=== PATIENT | male | born 1980 | race Hispanic/Latino ===

== ENCOUNTER 2017-08-19 10:09 | Emergency (ER) | payer BC | END 2017-08-19 10:57 | disposition home or self-care (01) | LOC: ERS 10:09 | DX: J45.901 Unspecified asthma with (acute) exacerbation (principal) | CPT/HCPCS: 94640; J7620 ==

== ENCOUNTER 2017-08-26 16:03 | Emergency (ER) | payer BC ==
[~2017-08-26 16:03] MED LIST: ISOVUE-370 76%-LOCM 1 ML ONE
[2017-08-26 16:42] LABS: #Eosinphils 0.1 thou/uL (0.0-0.7); #Lymphocytes 0.6 thou/uL (1.20-3.40); #Monocytes 0.3 thou/uL (0.11-0.59); #Neutrophils 5.4 thou/uL (1.40-6.50); %Basophils 0.6 % (0.0-1.0); %Eosinophils 2.1 % (0.0-10.0); %Lymphocytes 8.7 % (21.0-51.0); %Monocytes 4.9 % (0.0-10.0); %Neutrophils 83.7 % (42.0-75.0); Hemoglobin 17.1 g/dL (14.0-18.0); Mean Corpuscular HGB CONC 37.3 g/dL (32.0-36.0); Mean Platelet Volume 9.1 fL (7.4-10.4); Platelet Count 147 thou/uL (130-400); RBC Distribution Width 11.5 % (11.5-14.5); Red Blood Cell (RBC) Count 5.03 mill/uL (4.70-6.10); White Blood Cell (WBC) Count 6.5 thou/uL (4.8-10.8)
--- NOTE | 2017-08-26 16:43 | RAD ---
CHEST ONE VIEW 08/26/17 HISTORY: Dyspnea. Chest pain. FINDINGS: No comparison. Cardiac silhouette is magnified by projection. Pulmonary vasculature is unremarkable. Mediastinum is midline. There is no lobar consolidation or evidence of pneumothorax. child monitor leads overlie t he chest. IMPRESSION: No active cardiopulmonary abnormalities are demonstrated. POS: [facility]
[2017-08-26 17:00] LABS: CKMB 0.8 ng/mL (0-6.6); Troponin I Less than 0.010 ng/mL (< 0.028)
[2017-08-26 17:21] LABS: ALT (SGPT) 54 U/L (8-55)
[2017-08-26 17:46] LABS: Chloride 107 mmol/L (98-107); Potassium 4.6 mmol/L (3.5-5.1); Sodium 140 mmol/L (136-145)
[2017-08-26 17:47] LABS: Anion Gap 16 mmol/L (10-20); BUN (Urea Nitrogen) 13 mg/dL (8.9-20.6); Calc. Creatinine Clearance 0 mL/min (70-130); Carbon Dioxide 22 mmol/L (22-29); Estimated GFR-MDRD 88
[2017-08-26 17:48] LABS: Albumin 4.7 g/dL (3.5-5.0); Bilirubin, Total 0.7 mg/dL (0.2-1.2); Calcium 9.6 mg/dL (7.8-10.44); Globulin 2.5 g/dL (2.4-3.5); Glucose 352 mg/dL (70-105); Protein, Total 7.2 g/dL (6.0-8.3)
[2017-08-26 17:49] LABS: AST (SGOT) 58 U/L (5-34); Alkaline Phosphatase 90 U/L (40-150); CK (CPK) 74 U/L (30-200)
[2017-08-26] MEDS ORDERED: predniSONE 20 MG TAB ONE (18:34)
--- NOTE | 2017-08-26 18:35 | CT ---
CT ANGIO OF CHEST PERFORMED WITH INTRAVENOUS CONTRAST ENHANCEMENT WITH 3D RECONSTRUCTIONS: 08/26/17 HISTORY: Elevated D-dimer. Cough. The lungs are clear of any infiltrative process. No pulmonary nodules or pleural effusions. This examination had to be repeated due to poor timing of the bolus on the initial study. Unfortunate ly on the second study, the exam was also late as the contrast is entirely in the arterial system. T his is nondiagnostic for pulmonary embolus. The thoracic aorta is normal in caliber. There are marked fatty changes of the liver. Right and left adrenal glands are normal. The spleen is slightly enlarged measuring approximately 15 cm in length. It is not entirely visualized on this exam ination. The liver is also not entirely visualized but may be slightly enlarged. IMPRESSION: 1. No evidence of any infiltrative process. 2. Nondiagnostic study for pulmonary embolus. 3. Diffuse fatty change of the liver with borderline liver and spleen size. POS: [facility]
--- NOTE | 2017-08-29 16:45 | EKG ---
Test Reason : ALBEUTEROL Blood Pressure : / mmHG Vent. Rate : 117 BPM Atrial Rate : 117 BPM P-R Int : 158 ms QRS Dur : 106 ms QT Int : 334 ms P-R-T Axes : 041 257 029 degrees QTc Int : 465 ms Sinus tachycardia Right superior axis deviation Incomplete right bundle branch block Right ventricular hypertrophy Abnormal ECG Confirmed by CHEMO LOEW ([id number]), web editor JESSICA CORDOBA ([id number]) on 08/29/2017 4:45:43 PM Referred By: MEGHAN Confirmed By:CHEMO LOWE
== END 2017-08-26 19:00 | disposition home or self-care (01) ==
LOC: ERS 16:03
DX: J45.901 Unspecified asthma with (acute) exacerbation (principal); Z79.899 Other long term (current) drug therapy
CPT/HCPCS: 36415; 71045; 71275; 80053; 82553; 83880; 84484; 85025; 85379; 93005; J7506; J7620

== ENCOUNTER 2018-11-25 12:06 | Emergency (ER) | payer BC ==
[2018-11-25 13:40] LABS: Bilirubin Negative (Negative); Blood, Urine Negative (Negative); Clarity CLEAR (Clear); Glucose, Urine (Dipstick) >=1000 mg/dL (Negative); Leukocyte Negative (Negative); Nitrite Negative (Negative); Protein, Urine (Dipstick) Negative (Neg-Trace); Urobilinogen 0.2 mg/dL (0.2-1.0)
[2018-11-25 15:23] LABS: #Eosinphils 0.1 thou/uL (0.0-0.7); #Lymphocytes 1.9 thou/uL (1.20-3.40); #Monocytes 0.6 thou/uL (0.11-0.59); #Neutrophils 5.7 thou/uL (1.40-6.50); %Basophils 0.3 % (0.0-1.0); %Eosinophils 0.7 % (0.0-10.0); %Lymphocytes 22.6 % (21.0-51.0); %Monocytes 7.4 % (0.0-10.0); Hemoglobin 15.5 g/dL (14.0-18.0); Mean Corpuscular HGB CONC 34.4 g/dL (32.0-36.0); Mean Corpuscular Hemoglobin 31.3 pg (27.0-31.0); Mean Platelet Volume 8.5 fL (7.4-10.4); Platelet Count 131 thou/uL (130-400); RBC Distribution Width 11.6 % (11.5-14.5); Red Blood Cell (RBC) Count 4.96 mill/uL (4.70-6.10); White Blood Cell (WBC) Count 8.2 thou/uL (4.8-10.8)
[2018-11-25 15:41] LABS: ALT (SGPT) 49 U/L (8-55); AST (SGOT) 23 U/L (5-34); Albumin 4.5 g/dL (3.5-5.0); Alkaline Phosphatase 82 U/L (40-150); Anion Gap 11 mmol/L (10-20); BUN (Urea Nitrogen) 8 mg/dL (8.9-20.6); Bilirubin, Total 1.3 mg/dL (0.2-1.2); Calc. Creatinine Clearance 0 mL/min (70-130); Calcium 9.4 mg/dL (7.8-10.44); Carbon Dioxide 30 mmol/L (22-29); Chloride 99 mmol/L (98-107); Estimated GFR-MDRD Greater than 90; Globulin 2.8 g/dL (2.4-3.5); Glucose 255 mg/dL (70-105); Lipase 30 U/L (8-78); Potassium 3.9 mmol/L (3.5-5.1); Protein, Total 7.3 g/dL (6.0-8.3); Sodium 136 mmol/L (136-145)
--- NOTE | 2018-11-25 16:49 | CT ---
CT ABDOMEN AND PELVIS WITH IV CONTRAST 11/25/18 HISTORY: Left sided back and flank pain. FINDINGS: The lung bases are clear. The liver demonstrates diffusely decreased attenuation compared to the sple en consistent with fatty infiltration. No liver mass or abnormal biliary ductal dilatation is seen. No calcified gallstones are noted. The gallbladder is contracted. The spleen is enlarged measuring 16 cm in length. The pancreas, adrenal glands and kidneys are normal. There is colonic diverticulosis with thickening of the descending colon with adjacent inflammatory ch anges and small tiny amount of fluid in the left pericolic gutter. There is a fat containing umbilical hernia. The small bowel loops are not abnormally dilated. A norm al appearing appendix is seen. No acute osseous abnormalities are identified. IMPRESSION: 1. Left descending colitis/diverticulitis. A colonoscopy should be performed after treatment. 2. Fatty liver. 3. Fat containing umbilical hernia. 4. Splenomegaly. POS: [facility]
[2018-11-25] MEDS ORDERED: Morphine 4 MG/ML VIAL ONE (17:15)
[2018-11-25] MEDS ORDERED: Ondansetron PF 4 MG/2 ML Vial ONE (17:16)
[2018-11-25] MEDS ORDERED: Ketorolac Tromethamine 30 MG/ML VIAL ONE (17:16)
== END 2018-11-25 17:24 | disposition home or self-care (01) ==
LOC: ERS 12:06
DX: K57.32 Diverticulitis of large intestine without perforation or abscess without bleeding (principal); K76.0 Fatty (change of) liver, not elsewhere classified; K46.9 Unspecified abdominal hernia without obstruction or gangrene; R16.1 Splenomegaly, not elsewhere classified; J45.909 Unspecified asthma, uncomplicated
CPT/HCPCS: 36415; 74177; 80053; 81003; 83690; 85025; 96374; 96375; J1885; J2270; J2405; Q9966

== ENCOUNTER 2018-12-01 18:24 | Emergency (ER) | payer BC ==
[2018-12-01 18:54] LABS: #Basophils 0.1 thou/uL (0.0-0.2); #Eosinphils 0.1 thou/uL (0.0-0.7); #Lymphocytes 2.2 thou/uL (1.20-3.40); #Monocytes 0.4 thou/uL (0.11-0.59); #Neutrophils 3.6 thou/uL (1.40-6.50); %Eosinophils 1.1 % (0.0-10.0); %Lymphocytes 35.2 % (21.0-51.0); %Monocytes 5.6 % (0.0-10.0); %Neutrophils 57.2 % (42.0-75.0); Hemoglobin 16.1 g/dL (14.0-18.0); Mean Corpuscular HGB CONC 35.1 g/dL (32.0-36.0); Mean Corpuscular Hemoglobin 32.5 pg (27.0-31.0); Mean Corpuscular Volume 92.6 fL (78.0-98.0); Mean Platelet Volume 8.2 fL (7.4-10.4); Platelet Count 142 thou/uL (130-400); RBC Distribution Width 11.6 % (11.5-14.5); Red Blood Cell (RBC) Count 4.97 mill/uL (4.70-6.10); White Blood Cell (WBC) Count 6.3 thou/uL (4.8-10.8)
[2018-12-01] MEDS ORDERED: metroNIDAZOLE 500 MG/100 ML BAG ONE (19:09)
[2018-12-01] MEDS ORDERED: Ondansetron PF 4 MG/2 ML Vial ONE (19:09)
[2018-12-01 19:12] LABS: ALT (SGPT) 92 U/L (8-55); AST (SGOT) 44 U/L (5-34); Albumin 4.5 g/dL (3.5-5.0); Alkaline Phosphatase 82 U/L (40-150); Anion Gap 14 mmol/L (10-20); BUN (Urea Nitrogen) 11 mg/dL (8.9-20.6); Bilirubin, Total 0.6 mg/dL (0.2-1.2); Calc. Creatinine Clearance 0 mL/min (70-130); Calcium 9.3 mg/dL (7.8-10.44); Carbon Dioxide 26 mmol/L (22-29); Chloride 100 mmol/L (98-107); Estimated GFR-MDRD 80; Globulin 2.6 g/dL (2.4-3.5); Glucose 479 mg/dL (70-105); Potassium 4.1 mmol/L (3.5-5.1); Protein, Total 7.1 g/dL (6.0-8.3); Sodium 136 mmol/L (136-145)
[2018-12-01 21:56] LABS: Lactic Acid 1.2 mmol/L (0.5-2.2)
--- NOTE | 2018-12-04 18:45 | EKG ---
Test Reason : Blood Pressure : / mmHG Vent. Rate : 096 BPM Atrial Rate : 096 BPM P-R Int : 132 ms QRS Dur : 114 ms QT Int : 372 ms P-R-T Axes : 023 -54 041 degrees QTc Int : 469 ms Normal sinus rhythm Left axis deviation Incomplete right bundle branch block Abnormal ECG No changes from 26-AUG-2017 Confirmed by YORDAN AMIN DO ([id number]), newspaper editor managing TREVOR JOLLEY ([id number]) on 12/04/2018 6:45:25 PM Referred By: Confirmed By:YORDAN AMIN DO
== END 2018-12-01 22:36 | disposition home or self-care (01) ==
LOC: ERS 18:24
DX: E86.0 Dehydration (principal); R73.9 Hyperglycemia, unspecified; J45.909 Unspecified asthma, uncomplicated; Z79.891 Long term (current) use of opiate analgesic; Z79.899 Other long term (current) drug therapy
CPT/HCPCS: 36415; 36416; 80053; 83605; 84484; 85025; 93005; 96361; 96365; 96367; 96375; J0744; J2405

== ENCOUNTER 2019-05-08 12:10 | Emergency (ER) | payer BC ==
[2019-05-08 13:01] LABS: #Eosinphils 0.1 thou/uL (0.0-0.7); #Lymphocytes 2.1 thou/uL (1.20-3.40); #Monocytes 0.3 thou/uL (0.11-0.59); #Neutrophils 2.9 thou/uL (1.40-6.50); %Basophils 0.2 % (0.0-1.0); %Eosinophils 1.1 % (0.0-10.0); %Lymphocytes 38.5 % (21.0-51.0); %Monocytes 5.3 % (0.0-10.0); %Neutrophils 54.8 % (42.0-75.0); INR-International Normal Ratio 1.1; Mean Corpuscular HGB CONC 37.1 g/dL (32.0-36.0); Mean Corpuscular Hemoglobin 34.1 pg (27.0-31.0); Mean Corpuscular Volume 91.9 fL (78.0-98.0); Platelet Count 129 thou/uL (130-400); Prothrombin Time 13.8 SEC (12.0-14.7); RBC Distribution Width 11.3 % (11.5-14.5); Red Blood Cell (RBC) Count 4.68 mill/uL (4.70-6.10); White Blood Cell (WBC) Count 5.3 thou/uL (4.8-10.8)
[2019-05-08 13:11] LABS: ALT (SGPT) 120 U/L (8-55); AST (SGOT) 53 U/L (5-34); Albumin 4.2 g/dL (3.5-5.0); Alkaline Phosphatase 64 U/L (40-110); Anion Gap 13 mmol/L (10-20); BUN (Urea Nitrogen) 8 mg/dL (8.9-20.6); Bilirubin, Total 0.5 mg/dL (0.2-1.2); Calc. Creatinine Clearance 0 mL/min (70-130); Calcium 8.3 mg/dL (7.8-10.44); Carbon Dioxide 23 mmol/L (22-29); Chloride 102 mmol/L (98-107); Estimated GFR-MDRD Greater than 90; Globulin 2.6 g/dL (2.4-3.5); Glucose 294 mg/dL (70-105); Potassium 3.8 mmol/L (3.5-5.1); Protein, Total 6.8 g/dL (6.0-8.3); Sodium 134 mmol/L (136-145)
== END 2019-05-08 13:40 | disposition home or self-care (01) ==
LOC: ERS 12:10
DX: K64.4 Residual hemorrhoidal skin tags (principal); K62.5 Hemorrhage of anus and rectum; J45.909 Unspecified asthma, uncomplicated
CPT/HCPCS: 36415; 80053; 84484; 85025; 85610; 85730; 93005

== ENCOUNTER 2019-06-21 07:45 | Outpatient (CLI) | payer BC ==
[2019-06-21 10:37] LABS: Hemoglobin 16.5 g/dL (14.0-18.0); Mean Corpuscular HGB CONC 36.1 g/dL (32.0-36.0); Mean Corpuscular Hemoglobin 33.5 pg (27.0-31.0); Mean Corpuscular Volume 92.7 fL (78.0-98.0); Mean Platelet Volume 8.9 fL (7.4-10.4); Platelet Count 132 thou/uL (130-400); RBC Distribution Width 11.7 % (11.5-14.5); Red Blood Cell (RBC) Count 4.94 mill/uL (4.70-6.10); White Blood Cell (WBC) Count 4.9 thou/uL (4.8-10.8)
[2019-06-21 10:46] LABS: PTT 29.9 SEC (22.9-36.1); Prothrombin Time 13.3 SEC (12.0-14.7)
[2019-06-21 10:48] LABS: Bacteria/HPF None Seen HPF (None Seen); Bilirubin Negative (Negative); Blood, Urine Negative (Negative); Clarity Clear (Clear); Glucose, Urine (Dipstick) Greater than 1000 mg/dL (Negative); Leukocyte Negative Leu/uL (Negative); Nitrite Negative (Negative); Protein, Urine (Dipstick) Negative (Neg-Trace); Squamous Epithelial 0-3 HPF (0-3); Urobilinogen Normal mg/dL (Less than 2); WBC/HPF 0-3 HPF (0-3)
[2019-06-21 10:50] LABS: Anion Gap 13 mmol/L (10-20); BUN (Urea Nitrogen) 8 mg/dL (8.9-20.6); Calc. Creatinine Clearance 0 mL/min (70-130); Calcium 9.2 mg/dL (7.8-10.44); Carbon Dioxide 23 mmol/L (22-29); Chloride 104 mmol/L (98-107); Estimated GFR-MDRD Greater than 90; Glucose 223 mg/dL (70-105); Potassium 3.8 mmol/L (3.5-5.1); Sodium 136 mmol/L (136-145)
--- NOTE | 2019-06-21 14:21 | EKG ---
Test Reason : Blood Pressure : / mmHG Vent. Rate : 091 BPM Atrial Rate : 091 BPM P-R Int : 166 ms QRS Dur : 116 ms QT Int : 366 ms P-R-T Axes : 036 198 008 degrees QTc Int : 450 ms Normal sinus rhythm Indeterminate axis Right bundle branch block Left ventricular hypertrophy with QRS widening Abnormal ECG When compared with ECG of 08-MAY-2019 13:22, Right bundle branch block is now Present Confirmed by JACKIE MANNING, SDavey ([id number]) on 06/21/2019 2:20:45 PM Referred By: MARION Confirmed By:DR. Arlene MEJIA MD
== END 2019-06-21 07:46 | disposition home or self-care (01) ==
LOC: LABBT 07:45
PROVIDERS: ATTEND Urology
DX: Z01.818 Encounter for other preprocedural examination (principal); N47.6 Balanoposthitis
CPT/HCPCS: 80048; 81001; 85027; 85610; 85730; 87086; 93005; 93010

== ENCOUNTER 2019-07-06 09:20 | Day surgery (SDC) | payer BC ==
[2019-06-21 08:28] VITALS: BMI 34.7
[2019-07-06] MEDS ORDERED: ePHEDrine/0.9% NaCl/PF SYRINGE 50 mg/10 ml ONE (10:17)
[2019-07-06] MEDS ORDERED: Rocuronium Bromide 10 MG/ML (10ML VIAL) ONE (10:17)
[2019-07-06] MEDS ORDERED: PROPOFOL 200 MG/20 ML VIAL ONE (10:17)
[2019-07-06] MEDS ORDERED: Lidocaine 1% PF 5 ML VIAL ONE (10:17)
[2019-07-06] MEDS ORDERED: Fentanyl 100 MCG/2 ML VIAL ONE ×2 (10:57→13:09)
[2019-07-06] MEDS ORDERED: Fluconazole In NaCl,Iso-Osm 200 MG in Premix Bag 1 BAG IVPB SCH (11:45)
[2019-07-06] MEDS ORDERED: HYDROmorphone 2 MG/ML VIAL ONE (12:12)
[2019-07-06] MEDS ORDERED: HYDROmorphone 0.5 MG/0.5 ML SYRINGE ONE (12:14)
[2019-07-06] MEDS ORDERED: HYDROcodone/Acetaminophen 5/325 mg Tablet ONE (13:34)
[2019-07-06] MEDS ORDERED: Phenazopyridine HCl 97.5 MG TABLET ONE (13:49)
--- NOTE | 2019-07-06 14:37 | OP ---
DATE OF PROCEDURE: 07/06/2019 PREOPERATIVE DIAGNOSES: 1. A 39-year-old male with history of diabetes with balanoposthitis. 2. Newly-appreciated microscopic hematuria. 3. Significant glucosuria. POSTOPERATIVE DIAGNOSES: 1. A 39-year-old male with history of diabetes with balanoposthitis. 2. Newly-appreciated microscopic hematuria. 3. Significant glucosuria. PROCEDURES PERFORMED: Circumcision, flexible cystoscopy. ANESTHESIA: LMA, general. COMPLICATIONS: None apparent. DISPOSITION: To recovery room in stable condition. INDICATIONS FOR PROCEDURE AND HISTORY: Mr. Vazquez is a 39-year-old diabetic male, who presents for evaluation of circumcision as his balanoposthitis present is bothersome to him. He has been informed regarding risks and complications including bleeding, pain, infection, chronic pain, penile curvature, and meatal stenosis. Preoperative workup demonstrated incidental microscopic hematuria, the patient advised regarding flexible cystoscopy as well and he desires to proceed. I do plan on obtaining a CT at a later date. DESCRIPTION OF PROCEDURE: After an informed consent was signed, the patient was taken to the operating room, placed in a supine position. Genital area was formally prepped and draped. He does have evidence of balanoposthitis with moderate amount of smegma and frenular adhesion. This was cleaned appropriately and a flexible cystoscopy was performed. This demonstrated no evidence of urethral stricture. Bilobar coapting lobes with no significant obstruction. Bladder was entered, which demonstrated ureteral orifices about 3 to 4 mm proximal to the bladder neck with no evidence of trabeculation, bladder stones or tumors of concern. At this time, we passed a 16-[place] catheter and emptied his bladder complete and proceeded with circumcision. The foreskin was marked to the level of the coronal sulcus and a 15 blade was utilized to incise the ring of foreskin. A frenular adhesion was reduced first prior to doing this. The ring of foreskin was divided with electrocautery and the skin was reapproximated with 2-0 chromic in an interrupted fashion. Approximately 10 mL of quarter Marcaine was utilized for local penile block and sterile dressing was applied. He tolerated the procedure well and transported to the recovery room in stable condition. He will be discharged with Keflex for a course of 7 days, tramadol p.r.n. He will see me this Thursday for a wound check. Job ID: [id number]
[2019-07-06] MEDS ORDERED: Morphine 2 MG/ML SYRINGE ONE (15:11)
== END 2019-07-06 16:30 | disposition home or self-care (01) ==
LOC: SDC 09:20
PROVIDERS: ATTEND Urology
DX: N47.6 Balanoposthitis (principal); R31.29 Other microscopic hematuria; N47.5 Adhesions of prepuce and glans penis; E11.9 Type 2 diabetes mellitus without complications; Z79.84 Long term (current) use of oral hypoglycemic drugs; Z79.899 Other long term (current) drug therapy; Z91.040 Latex allergy status
CPT/HCPCS: 88304; J0690; J1170; J1450; J2001; J2270; J2704; J3010

== ENCOUNTER 2019-08-08 10:33 | Outpatient (CLI) | payer BC ==
--- NOTE | 2019-08-08 11:43 | CT ---
CT OF THE ABDOMEN AND PELVIS WITH AND WITHOUT IV CONTRAST INDICATION: 39-year-old male with hematuria and recent circumcision TECHNIQUE: Noncontrast CT of the abdomen and pelvis was performed. Postcontrast images were obtained in the nephrographic phase and delayed phase. Axial and coronal reformatted images were constructed from the raw data. COMPARISON: CT of the abdomen and pelvis dated November 25, 2018 FINDINGS: ABDOMEN: Lung bases: Clear Liver: Prominent fatty liver with focal fatty sparing near the gallbladder fossa Gallbladder: Normal appearing. Pancreas: Normal. Adrenal glands: Normal. Spleen: Stable splenomegaly measuring 15.3 cm Kidneys and ureters: No solid renal lesion or hydronephrosis is evident. No renal or ureteral calculu s is noted. No gross urothelial lesion is identified. Vasculature: Normal. Lymph nodes:No lymphadenopathy. Free fluid in abdomen:No free fluid is evident. PELVIS: Small and large bowel: There are scattered colonic diverticulosis without evidence of active divertic ulitis. Appendix:Normal Bladder: Normal. Rectal and perirectal soft tissues:Normal. Reproductive structures: Normal. Free fluid in pelvis: No free fluid is evident. Lymphadenopathy pelvis: No lymphadenopathy is evident. Osseous structures: No acute osseous abnormality. No destructive osteolytic or osteoblastic lesion i s identified. There is scattered degenerative and osteoarthritic changes. Soft tissues:There is a stable fat-containing umbilicus hernia. IMPRESSION: 1. No focal renal lesion or hydronephrosis. No gross urothelial lesion identified. 2. Colonic diverticulosis. 3. Stable fat-containing umbilical hernia. 4. Stable fatty liver and splenomegaly
[2019-08-08] MEDS ORDERED: Iopamidol-370 76% 500 ML 1 ML ONE (15:01)
== END 2019-08-08 10:34 | disposition home or self-care (01) ==
LOC: BICCT 10:33
PROVIDERS: ATTEND Urology
DX: R31.29 Other microscopic hematuria (principal); K57.30 Diverticulosis of large intestine without perforation or abscess without bleeding; K42.9 Umbilical hernia without obstruction or gangrene; K76.0 Fatty (change of) liver, not elsewhere classified; R16.1 Splenomegaly, not elsewhere classified
CPT/HCPCS: 74178; Q9967